=== PATIENT | male | born 1980 | race African-American/Black ===

== ENCOUNTER 2020-01-11 22:50 | Emergency (ER) | payer SELFPAY ==
[~2020-01-11] VITALS: Ht 188 cm; Wt 94.0 kg
[2020-01-11] MEDS ORDERED: ACETAMINOPHEN 500MG TABLET PO ONE (23:30)
[2020-01-11] MEDS ORDERED: IBUPROFEN 600MG TABLET PO ONE (23:30)
[2020-01-12 00:14] VITALS: BP 132/72
== END 2020-01-12 01:18 | disposition home or self-care (01) ==
LOC: ER 22:50
DX: S62.391A Other fracture of second metacarpal bone, left hand, initial encounter for closed fracture (principal); Y93.83 Activity, rough housing and horseplay; Y92.89 Other specified places as the place of occurrence of the external cause
CPT/HCPCS: 29125; 73130; 99283